=== PATIENT | male | born 1965 | race African-American/Black ===

== ENCOUNTER 2022-04-21 11:59 | Emergency (ER) | payer OTHER ==
[~2022-04-21] VITALS: Ht 185.4 cm; Wt 106.6 kg
[2022-04-21] MEDS ORDERED: GLIPIZIDE XL5 MG PO (12:30)
[2022-04-21] MEDS ORDERED: ADULT ASPIRIN81 MG PO (12:30)
[2022-04-21] MEDS ORDERED: HUMULIN 70100 UNIT/2 SQ (12:31)
[2022-04-21] MEDS ORDERED: SIMVASTATIN5 MG (12:31)
[2022-04-21] MEDS ORDERED: ANALPRAM HC 2.530 GM RECTAL (16:50)
== END 2022-04-21 16:54 | disposition home or self-care (01) ==
LOC: ER 11:59
DX: K64.9 Unspecified hemorrhoids (principal); K62.5 Hemorrhage of anus and rectum; E11.9 Type 2 diabetes mellitus without complications; Z79.4 Long term (current) use of insulin